=== PATIENT | female | born 1955 | race Caucasian/White ===

== ENCOUNTER → 2025-06-21 15:06 | Outpatient (REF) | payer OTHER, SELFPAY | LOC: HWRAD 15:06 | PROVIDERS: ATTENDING PHYSICIAN Hospitalist; REFERRING PHYSICIAN Student in an Organized Health Care Education/Training Program | DX: M19.90 Unspecified osteoarthritis, unspecified site (principal) | CPT/HCPCS: 73130; 73560 ==